=== PATIENT | female | born 1950 | race Caucasian/White ===

== ENCOUNTER → 2016-07-25 | Outpatient (CLI) | payer MEDICARE, OTHER ==
[~2016-07-25] MED LIST: ACCOLATE20 MG; ACCOLATE20 MG PO; ACTOS PO; ADRENACLIC0.3 MG/0.3; ADVAIR 250-501 EACH; ALBUTEROL20 ml; AMBIEN PO; ASPIRIN PO; ASPIRIN81 M2; ATENOLOL PO; BRILINTA60 MG; BUMEX PO; CALCIUM 600 +1 EAC8; CIPRO PO; CLEOCIN HCL300 M1 PO; COMBIVENT INH14.7 GM INH; COMBIVENT RESPIM4 GM INH; COREG6.25 M1; EFFIENT10 MG; FERROUS GL325 ( 37.5; FLAGYL PO; FLEXERIL PO; FLEXERIL10 MG; FLOVENT HFA12 GM; IMDUR PO; ISMO20 MG PO; KCL; KCL PO; KLOR-CON PO; LANTUS100 U/ML; LANTUS100 U/ML INJ; LANTUS100 U/ML SQ; LASIX PO; LIPITOR40 MG PO; LISINOPRIL PO; LOSARTAN POTASS25 MG; LYRICA PO; LYRICA200 MG; MACROBID100 MG PO; MAG-OXIDE400 MG PO; MAGNESIUM400 MG; METFORMIN PO; MUCINEX D ER T1 EACH; NEXIUM; NEXIUM PO; NIFEREX-150 CAP1 CAP; NITROSTAT0.4 MG SL; NORCO1 TAB 10/3 PO; NORVASC PO; NOVOLIN 70/30 V10 ML INJ; NOVOLOG100 U/ML; NOVOLOG100 U/ML SUBQ; PHENERGAN25 M1 PO; PHENERGAN50 MG/SUPP PR; PLENDIL PO; PROZAC PO; SEREVENT D50 MCG/DIS PO; SPIRIVA18 MCG; SYMLIN SQ; VICODIN 5/500 T1 TAB PO; VICODIN PO; VIT E PO; VITAMIN B-1000 MCG/1; VITAMIN C PO; ZOCOR PO; ZYLOPRIM100 MG PO
[2016-07-25 11:31] LABS: HEMATOCRIT 38.4 % (35.0-45.0); HEMOGLOBIN 12.7 gm/dL (12.0-16.0); MEAN CELL VOLUME 93.2 FL (83-96); MEAN CORPUSCULAR HEMOGLOBIN 30.8 PG (28-34); MEAN PLATELET VOLUME 11.6 FL (6.5-11.5); RED BLOOD COUNT 4.12 X10e (3.90-5.30); RED CELL DISTRIBUTION WIDTH 15.7 % (11.0-15.5)
[2016-07-25 11:49] LABS: BUN/CREATININE RATIO 25.29; CALCIUM SERUM 9.2 mg/dL (8.4-10.2); CREATININE SERUM 1.7 mg/dL (0.6-1.4); GLOM FILT RATE Estimated 32.3 mL/min (>60); POTASSIUM 4.2 mmol/L (3.5-5.1)
[2016-07-25 13:01] LABS: URINE APPEARANCE CLEAR; URINE BILIRUBIN NEG (NEG); URINE BLOOD NEG (NEG); URINE COLOR YELLOW; URINE GLUCOSE NEG (NORM); URINE KETONE NEG (NEG); URINE LEUKOCYTE ESTERASE 1+ (NEG); URINE NITRATE NEG (NEG); URINE PH 5.5 (5-8); URINE PROTEIN NEG (NEG); URINE UROBILINOGEN 0.2 MG/DL (NORM)
[2016-07-25 13:05] LABS: MICRO INDICATED? YES
[2016-07-25 13:11] LABS: URINE BACTERIA 1+ (NEG); URINE RBC 0-2 /[HPF] (0-2); URINE SQUAMOUS EPITHELIAL CELL FEW /[HPF]
[2016-07-25 16:09] LABS: CREATININE,RANDOM URINE 111 mg/dL; TOTAL PROTEIN,RANDOM URINE 12 mg/dl (<10)
== END | disposition home or self-care (01) ==
LOC: SLAB 11:16
PROVIDERS: Internal Medicine Nephrology
DX: N18.3 Chronic kidney disease, stage 3 (moderate) (principal)
CPT/HCPCS: 36415; 80048; 81003; 82570; 84156; 85027

== ENCOUNTER 2016-08-28 18:46 | Emergency (ER) | payer MEDICARE, OTHER ==
--- NOTE | ~2016-08-28 | CR72 ---
[facility] A Service of [facility] / [facility] RADIOLOGY TEXT RESULTS PATIENT: LEANDRA DAS LOCATION: SED : 54 UNIT #: [id number] AGE: [address]: Chandrakant Alejandre MD SEX: F ORDER DR: [id number] [place] [id number] E MR#: [id number] Acc #: [id number] NAME: LEANDRA DAS : 1950 SEX: F STUDY DATE/TIME: 08/28/2016 18:45 UNIT: SED ROOM: STUDY DESCRIPTION: CR Chest Single View Portable Attending Physician: Chandrakant Alejandre M.D. Ordering Physician: Chandrakant Alejandre M.D. Primary Care Physician: Elke Carty M.D. MEDICAL IMAGING REPORT This report is preliminary unless electronic signature is present. EXAM Chest x-ray portable HISTORY Short of air for 3 days. COMMENTS Single frontal portable view of the chest timed 18:45 on 08/28/2016 compared to 01/06/07. FINDINGS The study is limited by habitus and technical factors. Moderate postoperative cardiac silhouette enlargement with a left-sided pacer/defibrillator. Probably underlying chronic lung disease. Probably bilateral lower lung airspace disease. There may be a component of volume overload. Please correlate for concern for patchy pulmonary edema versus aspiration or early pneumonia with complete clearing recommended. No obvious pneumothorax or pleural effusion. IMPRESSION Moderate postop cardiac silhouette enlargement with patchy airspace disease at lung bases. Please correlate for clinical evidence of mild congestive failure and patchy pulmonary edema versus some concern for aspiration or pneumonia with follow up to clearing recommended. Findings are new from Chest x-ray from 2006. Films limited by portable technique and obesity. Dictated by... Nicole Potter M.D. [facility] A Service of [facility] / [facility] RADIOLOGY TEXT RESULTS PATIENT: LEANDRA DAS LOCATION: SED : 54 UNIT #: [id number] AGE: [address]: Chandrakant Alejandre MD SEX: F ORDER DR: THIS IS AN ELECTRONICALLY VERIFIED REPORT Nicole Potter M.D. at 08/28/2016 11:14 PM Charu TD: 08/28/2016 23:00 JOB #: [id number] MEDICAL IMAGING REPORT Page 1 of 1
--- NOTE | ~2016-08-28 | EKG ---
PATIENT: LEANDRA DAS UNIT #: [id number] Ventricular Rate: 77 BPM Atrial Rate: 77 BPM P-R Interval: 140 ms QRS Duration: 108 ms Q-T Interval: 420 ms QTC Calculation(Bezet): 475 ms P [place]: 40 degrees Calculated R [place]: -69 degrees Calculated T [place]: 84 degrees Diagnosis Line: Normal sinus rhythm Diagnosis Line: Left axis deviation Diagnosis Line: Lateral infarct , age undetermined Diagnosis Line: Inferior-posterior infarct (cited on or before Diagnosis Line: 13-JUL-2012) Diagnosis Line: Abnormal ECG Diagnosis Line: When compared with ECG of 13-JUL-2012 20:17, Diagnosis Line: QRS duration has increased Diagnosis Line: Lateral infarct is now Present Diagnosis Line: Questionable change in initial forces of Diagnosis Line: Inferoposterior leads Diagnosis Line: Confirmed by ELIZABET SINGH MD ([id number]) on 09/07/2016 Diagnosis Line: 7:57:11 PM INTERPRETING MD: FRANCISCO RAI
[2016-08-28 19:40] LABS: BASOPHIL# 0.1 X10e3 (0-0.3); BASOPHIL% 0.7 % (0-2.5); EOSINOPHIL# 0.3 X10e3 (0-0.7); EOSINOPHIL% 2.2 % (0.0-7.0); HEMATOCRIT 33.9 % (35.0-45.0); HEMOGLOBIN 11.2 gm/dL (12.0-16.0); LYMPHOCYTE# 1.9 X10e3 (1.0-3.5); LYMPHOCYTE% 16.1 % (17.0-45.0); MEAN CELL VOLUME 92.4 FL (83-96); MEAN CORPUSCULAR HEMOGLOBIN 30.7 PG (28-34); MEAN CORPUSCULAR HGB CONC 33.2 g/dL (30-36); MONOCYTE% 8.4 % (3.0-12.0); NEUTROPHIL# 8.7 X10e3 (1.5-7.1); NEUTROPHIL% 72.6 % (40-75); PLATELET COUNT 174 X10e3 (140-420); RED BLOOD COUNT 3.66 X10e (3.90-5.30); RED CELL DISTRIBUTION WIDTH 15.7 % (11.0-15.5)
[2016-08-28 19:41] LABS: DIFF IND NO
[2016-08-28 19:53] LABS: POC - CKMB 1.8 ng/mL (0.0-7.9); POC - TROPONIN <0.05 ng/mL (<=0.05)
[2016-08-28 19:55] LABS: BUN/CREATININE RATIO 22.35; CALCIUM SERUM 8.9 mg/dL (8.4-10.2); CREATININE SERUM 1.7 mg/dL (0.6-1.4); GLOM FILT RATE Estimated 31.6 mL/min (>60); MAGNESIUM 1.7 mg/dL (1.6-3.0); POTASSIUM 3.5 mmol/L (3.5-5.1)
== END 2016-08-28 20:48 | disposition home or self-care (01) ==
LOC: SED 18:46
PROVIDERS: Emergency Medicine
DX: J44.1 Chronic obstructive pulmonary disease with (acute) exacerbation (principal); N28.9 Disorder of kidney and ureter, unspecified; I11.0 Hypertensive heart disease with heart failure; I50.9 Heart failure, unspecified; E78.5 Hyperlipidemia, unspecified; E11.9 Type 2 diabetes mellitus without complications; I25.2 Old myocardial infarction; K21.9 Gastro-esophageal reflux disease without esophagitis; M10.9 Gout, unspecified; D64.9 Anemia, unspecified; Z90.49 Acquired absence of other specified parts of digestive tract; Z88.0 Allergy status to penicillin; Z88.2 Allergy status to sulfonamides; Z88.1 Allergy status to other antibiotic agents; Z98.890 Other specified postprocedural states
CPT/HCPCS: 36415; 71010; 80048; 82553; 82947; 83735; 83874; 83880; 84484; 85025; 87040; 93005; 94640; 96365; 96375; 99291; J2930; J3475